=== PATIENT | female | born 2000 | race Caucasian/White ===

== ENCOUNTER 2023-07-10 16:53 | Inpatient (IN) | payer OTHER ==
[~2023-07-10] VITALS: Ht 157.5 cm; Wt 57.6 kg
[2023-07-10 18:55] LABS: ETHYL ALCOHOL (ETHANOL) < 0.003 % (0.000-0.010)
[2023-07-10 18:57] LABS: ALKALINE PHOSPHATASE 88 U/L (46-116); ALT/SGPT 15 U/L (7.0-40); AST/SGOT 12 U/L (<34); BILIRUBIN,DIRECT 0.1 MG/DL (<0.4); BILIRUBIN,TOTAL 0.5 MG/DL (0.3-1.2); BLOOD UREA NITROGEN 12 MG/DL (9-23); CALCIUM LEVEL 10.3 MG/DL (8.5-10.1); CARBON DIOXIDE LEVEL 22 MMOL/L (20-31); CHLORIDE LEVEL 105 MMOL/L (98-107); CREATININE FOR GFR 0.79 MG/DL (0.55-1.30); GLOMERULAR FILTRATION RATE > 60.0 (>60); GLUCOSE, FASTING 79 MG/DL (60-100); POTASSIUM SERUM 4.1 MMOL/L (3.5-5.1); SALICYLATE LEVEL 4.8 MG/DL (<30); SODIUM LEVEL 139 MMOL/L (136-145); TOTAL PROTEIN 8.1 G/DL (5.7-8.2)
[2023-07-10 19:00] LABS: THYROID STIMULATING HORMONE 1.078 uIU/ML (0.55-4.78)
[2023-07-10 19:16] LABS: HCG, SERUM QUALITATIVE NEGATIVE (NEGATIVE)
[2023-07-10 19:16] LABS: HEMATOCRIT 41.3 % (36.0-47.0); HEMOGLOBIN 14.4 g/dl (12.0-15.5); MEAN CORPUSCULAR HEMOGLOBIN 30.3 pg (27.0-33.0); MEAN CORPUSCULAR HGB CONC 34.9 g/dl (32.0-36.5); MEAN CORPUSCULAR VOLUME 86.8 fl (80.0-96.0); PLATELET COUNT, AUTOMATED 305 10^3/uL (150-450); RED BLOOD COUNT 4.76 10^6/uL (4.00-5.40); WHITE BLOOD COUNT 7.1 10^3/uL (4.0-10.0)
[2023-07-10 19:44] LABS: AMPHETAMINES LEVEL URINE NEGATIVE (NEGATIVE); BARBITURATES URINE NEGATIVE (NEGATIVE); BENZODIAZEPINES URINE NEGATIVE (NEGATIVE); COCAINE METABOLITE URINE NEGATIVE (NEGATIVE); METHADONE URINE NEGATIVE (NEGATIVE); OPIATES URINE NEGATIVE (NEGATIVE); PHENCYCLIDINE URINE NEGATIVE (NEGATIVE)
[2023-07-10 19:45] LABS: CANNABINOIDS URINE POSITIVE (NEGATIVE)
[2023-07-10] MEDS ORDERED: IBUPROFEN 400MG TAB PO PRN (20:10)
[2023-07-10] MEDS ORDERED: diphenhydrAMINE 25MG CAP PO PRN (20:10)
[2023-07-10] MEDS ORDERED: MAALOX 30 ML SUSP *UDC PO PRN (20:10)
[2023-07-10] MEDS ORDERED: MOM 30ML SUSPENSION UDC PO PRN (20:10)
[2023-07-10 21:23] VITALS: BP 141/93; TEMP 99.2; O2SAT 98
[2023-07-10] MEDS: traZODone 50 MG TAB PO PRN (22:43)
[2023-07-10] MEDS ORDERED: HOME MED LIST COMPLETE! XX SCH (23:20)
[2023-07-11 06:33] VITALS: BP 125/61; TEMP 98.7; O2SAT 99
[2023-07-11] MEDS: lamoTRIgine 25MG TAB PO SCH (09:51)
[2023-07-11] MEDS: ACETAMINOPHEN TAB 650MG DOSE (2X325MG) PO PRN (11:06)
[2023-07-11] MEDS ORDERED: BOOSTRIX VACCINE (TETANUS/DIPHTH/ACEL. PERTUSSIS) 0.5ML SYR IM ONE (15:55)
[2023-07-11 17:28] VITALS: BP 137/81; TEMP 98.4; O2SAT 100
[2023-07-11] MEDS ORDERED: ONDANSETRON 4MG ORAL DISINTEGRATING TAB PO PRN (19:50)
[2023-07-11] MEDS: MIRTAZAPINE 7.5MG PER 1/2 TABLET PO SCH (20:07)
[2023-07-11] MEDS ORDERED: KETOROLAC 30 MG/ML 1ML VIAL IM ONE (20:10)
[2023-07-12 06:27] VITALS: BP 128/82; TEMP 97.8; O2SAT 98
[2023-07-12] MEDS: lamoTRIgine 25MG TAB PO SCH (09:38)
[2023-07-12] MEDS: ACETAMINOPHEN TAB 650MG DOSE (2X325MG) PO PRN (12:44)
[2023-07-12 17:54] VITALS: BP 129/89; TEMP 98.3; O2SAT 99
[2023-07-12] MEDS: MIRTAZAPINE 7.5MG PER 1/2 TABLET PO SCH (20:06)
[2023-07-12] MEDS: traZODone 50 MG TAB PO PRN (20:06)
[2023-07-13 06:26] VITALS: BP 124/72; TEMP 98.6; O2SAT 97
[2023-07-13] MEDS ORDERED: MIRT-10 PO (09:35)
[2023-07-13] MEDS ORDERED: TRAZ-252 PO (09:35)
[2023-07-13] MEDS ORDERED: LAMI25TA PO (09:35)
[2023-07-13] MEDS: lamoTRIgine 25MG TAB PO SCH (09:38)
== END 2023-07-13 10:52 | disposition home or self-care (01) | DRG 885 ==
LOC: M ED 16:53 → M ED INP 20:06 → M PSY 21:06
PROVIDERS: ADMIT Student in an Organized Health Care Education/Training Program; ATTEND Student in an Organized Health Care Education/Training Program
DX: F39 Unspecified mood [affective] disorder (principal); R45.851 Suicidal ideations; F60.3 Borderline personality disorder; F14.10 Cocaine abuse, uncomplicated; Z91.52 Personal history of nonsuicidal self-harm; Z91.51 Personal history of suicidal behavior; Z81.8 Family history of other mental and behavioral disorders; G43.709 Chronic migraine without aura, not intractable, without status migrainosus; I10 Essential (primary) hypertension; S71.111A Laceration without foreign body, right thigh, initial encounter; S71.112A Laceration without foreign body, left thigh, initial encounter; X78.8XXA Intentional self-harm by other sharp object, initial encounter; Y92.009 Unspecified place in unspecified non-institutional (private) residence as the place of occurrence of the external cause; Y99.8 Other external cause status; Y93.9 Activity, unspecified; Z91.410 Personal history of adult physical and sexual abuse

== ENCOUNTER → 2023-08-23 | Outpatient (RCR) | payer OTHER ==
[~2023-08-23] MED LIST: LAMI25TA PO; MIRT-10 PO; TRAZ-252 PO
== END ==
LOC: M OUTALCOH 07-26 13:35
PROVIDERS: ATTEND Psychiatry & Neurology Psychiatry
DX: F14.20 Cocaine dependence, uncomplicated (principal)